=== PATIENT | male | born 1960 | race Caucasian/White ===

== ENCOUNTER 2018-11-15 21:08 | Emergency (ER) | payer MEDICAID ==
[~2018-11-15] VITALS: Ht 185.4 cm; Wt 90.9 kg
[2018-11-15 21:27] VITALS: Ht 185.4 cm; Wt 90.9 kg
[2018-11-16] MEDS ORDERED: TORADOL10 MG PO (01:20)
[2018-11-16 01:33] VITALS: BP 117/73
== END 2018-11-16 01:34 | disposition home or self-care (01) ==
LOC: D.ER 21:08
DX: S61.511A Laceration without foreign body of right wrist, initial encounter (principal); W25.XXXA Contact with sharp glass, initial encounter; Y93.9 Activity, unspecified; Y92.9 Unspecified place or not applicable

== ENCOUNTER → 2020-02-15 09:40 | Outpatient (CLI) | payer OTHER ==
[2018-11-15 21:27] VITALS: BMI 26.4
[~2020-02-15 09:40] MED LIST: TORADOL10 MG PO
== END | disposition home or self-care (01) ==
LOC: D.RAD 09:30
PROVIDERS: ATTEND Pediatrics
DX: Z02.71 Encounter for disability determination (principal)

== ENCOUNTER → 2020-05-06 11:15 | Outpatient (CLI) | payer OTHER ==
[2018-11-15 21:27] VITALS: BMI 26.4
== END | disposition home or self-care (01) ==
LOC: D.RAD 11:00
PROVIDERS: ATTEND Pediatrics
DX: Z02.71 Encounter for disability determination (principal)